=== PATIENT | female | born 1945 | race American Indian/Alaskan Native ===

== ENCOUNTER 2016-08-01 11:17 | Outpatient (CLI) | payer MEDICARE ==
--- NOTE | 2016-08-01 12:23 | XRay Report ---
Left foot 3 views: History: Left hip pain. Findings: No articular abnormality at metatarsophalangeal and interphalangeal joint. No fracture, dislocation or periosteal reaction. Arthritic changes at the dorsal aspect of talonavicular joint and first tarsometatarsal joint. Plantar spur inferior aspect of body of calcaneum. Dorsal spur posterior superior calcaneum. Impression: Findings as detailed above.
== END 2016-08-01 11:18 | disposition home or self-care (01) ==
LOC: XRAY 11:17
PROVIDERS: ATTEND Family Medicine
DX: M79.672 Pain in left foot (principal)

== ENCOUNTER 2017-01-29 10:02 | Emergency (ER) | payer MEDICARE ==
[2017-01-29 10:10] VITALS: BP 190/80
[2017-01-29] MEDS ORDERED: TESSALON PERLES PO ONE (12:10)
--- NOTE | 2017-01-29 12:44 | Emergency Department Report ---
- General Chief Complaint: Upper Respiratory Infection Stated Complaint: COUGHING,VOMITING,SORENESS IN CHEST Time Seen by Provider: 01/29/17 11:16 Source: patient Mode of arrival: Ambulatory Limitations: No Limitations - History of Present Illness Initial Comments: This 71-year-old female nontoxic, well nourished in appearance, no acute signs of distress presents to the ED complaining of productive cough, sore throat, rhinorrhea 3 days. Patient describes cough with mucus production colored and yellow/green. Patient denies any shortness of breath, nausea, vomiting, chest pain, wheezing, stiff neck, headache, abdominal pain, numbness or tingling. Patient states allergies to Sulfa. Past medical history includes arthritis, GERD and hypertension. MD Complaint: cough, sore throat, rhinorrhea, nasal congestion -: Gradual, days(s) (3) Severity: mild Severity scale (0 -10): 6 Quality: aching Consistency: constant Improves With: nothing Worsens With: nothing Associated Symptoms: rhinorrhea, nasal congestion, sore throat, cough. denies: fever, chills, myalgias, diaphoresis, headache, stiff neck, chest pain, shortness of breath, abdominal pain, nausea, vomiting, diarrhea, dysuria, rash, confusion, right sweats, weight loss, epistaxis, hoarseness, ear pain Treatments Prior to Arrival: none - Related Data Home Medications Medication Instructions Recorded Confirmed Last Taken Aspirin [Aspirin TAB] 1 tab PO DAILY 08/15/13 08/15/13 08/15/13 Diltiazem [Cardizem] 1 tab PO BID 08/15/13 08/15/13 08/15/13 Lisinopril [Zestril TAB] 1 tab PO DAILY 08/15/13 08/15/13 08/15/13 Loratadine [Claritin] 1 tab PO DAILY 08/15/13 08/15/13 08/15/13 Ranitidine HCl [Ranitidine 150mg 1 tab PO BID PRN 08/15/13 08/15/13 08/14/13 Cap] clonazePAM [KlonoPIN] 1 tab PO DAILY 08/15/13 08/15/13 08/15/13 Previous Rx's Medication Instructions Recorded Last Taken Type Azithromycin [Zithromax Z-XAVIER] 250 mg PO DAILY #6 tablet 01/29/17 Unknown Rx Benzonatate [Tessalon Perle] 100 mg PO DAILY #15 capsule 01/29/17 Unknown Rx Allergies Allergy/AdvReac Type Severity Reaction Status Date / Time Sulfa (Sulfonamide Allergy Itching Verified 08/15/13 12:04 Antibiotics) ED Review of Systems ROS: Stated complaint: COUGHING,VOMITING,SORENESS IN CHEST Other details as noted in HPI Constitutional: denies: chills, fever Eyes: denies: eye pain, eye discharge, vision change ENT: throat pain. denies: ear pain Respiratory: cough. denies: shortness of breath, wheezing Cardiovascular: denies: chest pain, palpitations Endocrine: no symptoms reported Gastrointestinal: denies: abdominal pain, nausea, diarrhea Genitourinary: denies: urgency, dysuria, discharge Musculoskeletal: denies: back pain, joint swelling, arthralgia Skin: denies: rash, lesions Neurological: denies: headache, weakness, paresthesias Psychiatric: denies: anxiety, depression Hematological/Lymphatic: denies: easy bleeding, easy bruising ED Past Medical Hx - Past Medical History Previous Medical History?: Yes Hx Hypertension: Yes (since ) Hx GERD: Yes Hx Arthritis: Yes Hx Kidney Stones: Yes - Surgical History Past Surgical History?: No - Social History Smoking Status: Current Every Day Smoker Substance Use Type: None - Medications Home Medications: Home Medications Medication Instructions Recorded Confirmed Last Taken Type Aspirin [Aspirin TAB] 1 tab PO DAILY 08/15/13 08/15/13 08/15/13 History Diltiazem [Cardizem] 1 tab PO BID 08/15/13 08/15/13 08/15/13 History Lisinopril [Zestril TAB] 1 tab PO DAILY 08/15/13 08/15/13 08/15/13 History Loratadine [Claritin] 1 tab PO DAILY 08/15/13 08/15/13 08/15/13 History Ranitidine HCl [Ranitidine 150mg 1 tab PO BID PRN 08/15/13 08/15/13 08/14/13 History Cap] clonazePAM [KlonoPIN] 1 tab PO DAILY 08/15/13 08/15/13 08/15/13 History Azithromycin [Zithromax Z-XAVIER] 250 mg PO DAILY #6 tablet 01/29/17 Unknown Rx Benzonatate [Tessalon Perle] 100 mg PO DAILY #15 capsule 01/29/17 Unknown Rx ED Physical Exam - General Limitations: No Limitations General appearance: alert, in no apparent distress - Head Head exam: Present: atraumatic, normocephalic, normal inspection - Eye Eye exam: Present: normal appearance, PERRL, EOMI. Absent: scleral icterus, conjunctival injection, nystagmus, periorbital swelling, periorbital tenderness Pupils: Present: normal accommodation - ENT ENT exam: Present: mucous membranes moist, TM's normal bilaterally, normal external ear exam - Expanded ENT Exam Expanded Ear exam: Present: normal external inspection Mouth exam: Present: normal external inspection, tongue normal. Absent: drooling, trismus, muffled voice, tongue elevation, laceration Teeth exam: Present: normal inspection Throat exam: Positive: tonsillar erythema, tonsillomegaly (2+). Negative: tonsillar exudate, R peritonsillar mass, L peritonsillar mass - Neck Neck exam: Present: normal inspection, full ROM. Absent: tenderness, meningismus, lymphadenopathy, thyromegaly - Respiratory Respiratory exam: Present: normal lung sounds bilaterally. Absent: respiratory distress, wheezes, rales, rhonchi, stridor, chest wall tenderness, accessory muscle use, decreased breath sounds, prolonged expiratory - Cardiovascular Cardiovascular Exam: Present: regular rate, normal rhythm, normal heart sounds. Absent: bradycardia, tachycardia, irregular rhythm, systolic murmur, diastolic murmur, rubs, gallop - GI/Abdominal GI/Abdominal exam: Present: soft, normal bowel sounds. Absent: distended, tenderness, guarding, rebound, rigid, diminished bowel sounds - Rectal Rectal exam: Present: deferred - Extremities Exam Extremities exam: Present: normal inspection, full ROM, normal capillary refill. Absent: tenderness, pedal edema, joint swelling, calf tenderness - Back Exam Back exam: Present: normal inspection, full ROM. Absent: tenderness, CVA tenderness (R), CVA tenderness (L), muscle spasm, paraspinal tenderness, vertebral tenderness, rash noted - Neurological Exam Neurological exam: Present: alert, oriented X3, CN II-XII intact, normal gait, reflexes normal - Psychiatric Psychiatric exam: Present: normal affect, normal mood - Skin Skin exam: Present: warm, dry, intact, normal color. Absent: rash ED Course Vital Signs 01/29/17 10:06 Temperature 98.0 F Pulse Rate 90 Respiratory 20 Rate Blood Pressure 190/80 O2 Sat by Pulse 99 Oximetry - Reevaluation(s) Reevaluation #1: 01/29/17 12:47 Patient is speaking in full sentences with no signs of distress noted. ED Medical Decision Making - Medical Decision Making 71-year-old female that presents with upper respiratory infection and tonsillitis. Patient was evaluated by me and patient is stable. Patient's both grandchildren just diagnosed with tonsillitis with exudate. Patient's close contact with them. Patient be treated with azithromycin 5 days. Patient received Tessalon Perle patient stated she feels much better and symptoms of sore throat and cough has subsided. Patient was instructed to follow -up with a primary care doctor in 3-5 days or if symptoms worsen and continue return to emergency room as soon as possible possible. Patient is hemodynamically stable with stable vital signs. Patient states he is feeling better. At time time of discharge, the patient does not seem toxic or ill in appearance. No acute signs of distress noted. Patient agrees to discharge treatment plan of care. No further questions noted by the patient. Critical care attestation.: If time is entered above; I have spent that time in minutes in the direct care of this critically ill patient, excluding procedure time. ED Disposition Clinical Impression: Tonsillitis Upper respiratory infection Qualifiers: URI type: unspecified URI Qualified Code(s): J06.9 - Acute upper respiratory infection, unspecified Disposition: DC- TO HOME OR SELFCARE Is pt being admited?: No Does the pt Need Aspirin: No Condition: Stable Instructions: Upper Respiratory Infection (ED), Tonsillitis (ED), Azithromycin (By mouth), Benzonatate (By mouth) Additional Instructions: Follow-up with a primary care doctor in 3-5 days or if symptoms worsen and continue return to emergency room as soon as possible possible. Prescriptions: Azithromycin [Zithromax Z-XAVIER] 250 mg PO DAILY #6 tablet Benzonatate [Tessalon Perle] 100 mg PO DAILY #15 capsule Referrals: PRIMARY CARE, [Primary Care Provider] - 3-5 Days NERY RUSSO MD [Staff Physician] - 3-5 Days [facility] [Outside] - 3-5 Days [facility] [Outside] - 3-5 Days Forms: Work/School Release Form(ED)
== END 2017-01-29 12:54 | disposition home or self-care (01) ==
LOC: ED 10:02
DX: J06.9 Acute upper respiratory infection, unspecified (principal); J03.90 Acute tonsillitis, unspecified; I10 Essential (primary) hypertension; K21.9 Gastro-esophageal reflux disease without esophagitis; F17.200 Nicotine dependence, unspecified, uncomplicated
CPT/HCPCS: 99282